=== PATIENT | male | born 1980 | race Caucasian/White ===

== ENCOUNTER 2017-03-08 18:21 | Emergency (ER) | payer OTHER ==
[2017-03-08 19:33] VITALS: BP 157/84
[2017-03-08] MEDS ORDERED: Cyclobenzaprine TAB* 10 MG PO ONE (19:41)
[2017-03-08] MEDS ORDERED: HYDROcodone/ACETAMIN 5-325 MG* 1 TAB PO ONE (19:41)
[2017-03-08] MEDS ORDERED: Naproxen TAB* 250 MG PO ONE (19:41)
--- NOTE | 2017-03-08 20:03 | UC ---
Back Pain HPI - HPI Summary HPI Summary: upper back pain x 1 week pain is between his shoulder blades ? injury by lifting heavy objects no cough, no sob - History of Current Complaint Chief Complaint: UCBackPain Stated Complaint: BACK PAIN Time Seen by Provider: 03/08/17 19:22 Hx Obtained From: Patient Onset/Duration: Gradual Onset, Lasting Weeks - 1, Still Present Timing: Constant Severity Initially: Moderate Severity Currently: Severe Back Pain: Is Discrete @ - upper back Character: Aching, Spasmodic Aggravating Factor(s): Movement, Lifting, Bending, Cough Alleviating Factor(s): Rest Associated Signs And Symptoms: Negative: Swelling, Redness, Bruising, Fever, Weakness, Numbness, Abdominal Pain - Allergies/Home Medications Allergies/Adverse Reactions: Allergies Allergy/AdvReac Type Severity Reaction Status Date / Time No Known Allergies Allergy Verified 03/08/17 19:25 Home Medications: Home Medications Acetaminophen TAB* [Tylenol TAB*] 1,000 mg PO TID 03/08/17 [History Confirmed ] Baclofen TAB* [Lioresal TAB*] 10 mg PO TID PRN 03/08/17 [History Confirmed 03/08] Lisinopril TAB* [Prinivil TAB 10 MG*] 10 mg DAILY 03/08/17 [History Confirmed ] PMH/Surg Hx/FS Hx/Imm Hx Previously Healthy: Yes - Surgical History Surgical History: Yes Surgery Procedure, Year, and Place: Appendix - Family History Known Family History: Negative: Diabetes - Social History Alcohol Use: Rare Substance Use Type: None Smoking Status (MU): Current Every Day Smoker Type: Cigarettes Amount Used/How Often: 1 PPD - Immunization History Most Recent Influenza Vaccination: NONE 2017 Review of Systems Constitutional: Negative Skin: Negative Eyes: Negative ENT: Negative Respiratory: Negative Is Patient Immunocompromised?: No All Other Systems Reviewed And Are Negative: Yes Physical Exam Triage Information Reviewed: Yes Appearance: No Pain Distress, Well-Nourished, Pain Distress Vital Signs: Initial Vital Signs Temp 98.1 F 03/08/17 19:27 Pulse 63 03/08/17 19:27 Resp 16 03/08/17 19:27 BP 157/84 03/08/17 19:27 Pulse Ox 98 03/08/17 19:27 Vital Signs Reviewed: Yes Eyes: Positive: Conjunctiva Clear ENT: Positive: Normal ENT inspection, Hearing grossly normal, Pharynx normal Neck exam: Normal Neck: Positive: Supple, Nontender, No Lymphadenopathy Respiratory: Positive: Chest non-tender, Lungs clear, Normal breath sounds Cardiovascular: Positive: RRR, No Murmur, Pulses Normal Abdominal Exam: Normal Abdomen Description: Positive: Nontender, Soft. Negative: CVA Tenderness (R), CVA Tenderness (L), Distended, Guarding Bowel Sounds: Positive: Present Musculoskeletal: Positive: Strength Intact, ROM Intact, No Edema, Other: - upper back : no swelling, no erythem , no tenderness, pain with any ROM Back Pain Course/Dx - Differential Dx/Diagnosis Provider Diagnoses: upper back strain Discharge - Discharge Plan Condition: Stable Disposition: HOME Prescriptions: Cyclobenzaprine TAB* [Flexeril 10 MG TAB*] 10 mg PO BID #20 tab HYDROcodone/ACETAMIN 5-325 MG* [[place] 5-325 TAB*] 1 tab PO Q6H PRN #15 tab MDD 4 tabs per day PRN Reason: Pain Naproxen [Naprosyn 500 mg] 500 mg PO BID #20 tab Patient Education Materials: Thoracic Back Strain (ED) Referrals: No Primary Care Phys,NOPCP [Primary Care Provider] - 7 Days
== END 2017-03-08 20:01 | disposition home or self-care (01) ==
LOC: UCCORT 18:21
DX: S29.012A Strain of muscle and tendon of back wall of thorax, initial encounter (principal); X58.XXXA Exposure to other specified factors, initial encounter; Y93.9 Activity, unspecified; Y92.9 Unspecified place or not applicable; F17.210 Nicotine dependence, cigarettes, uncomplicated
CPT/HCPCS: 99213; A9270-GY; G0463

== ENCOUNTER 2017-05-11 19:56 | Emergency (ER) | payer OTHER ==
[2017-05-11 20:29] VITALS: BP 147/83
--- NOTE | 2017-05-11 20:37 | UC ---
Ear Complaint HPI - HPI Summary HPI Summary: Pain in the right side of the neck with radiation up the right ear. Hearing decreased. No sorethroat congestion or cough. - History of Current Complaint Chief Complaint: UCEar Stated Complaint: RIGHT EAR PAIN Time Seen by Provider: 05/11/17 20:31 Hx Obtained From: Patient Onset/Duration: Gradual Onset, Lasting Weeks - 1, Worse Since - in the last couple of days. Severity Initially: Mild Severity Currently: Moderate Aggravating Factors: Other - pushing on the upper neck Associated Signs/Symptoms: Positive: Hearing Loss Related History: Seasonal Allergies - Allergies/Home Medications Allergies/Adverse Reactions: Allergies Allergy/AdvReac Type Severity Reaction Status Date / Time No Known Allergies Allergy Verified 05/11/17 20:29 Home Medications: Home Medications Flaxseed (Linseed) [Flax Seed Oil 1000 mg] 1 cap PO 05/11/17 [History] PMH/Surg Hx/FS Hx/Imm Hx Cardiovascular History: Hypertension - Surgical History Surgical History: Yes Surgery Procedure, Year, and Place: Appendix - Family History Known Family History: Negative: Diabetes - Social History Occupation: Employed Full-time Lives: With Family Alcohol Use: Rare Substance Use Type: None Smoking Status (MU): Heavy Every Day Tobacco Smoker Type: Cigarettes Amount Used/How Often: 1 PPD Have You Smoked in the Last Year: Yes Cessation Counseling: Patient Advised to Stop - Immunization History Most Recent Influenza Vaccination: NONE 2017 Review of Systems ENT: Ear Ache, Nasal Discharge Is Patient Immunocompromised?: No All Other Systems Reviewed And Are Negative: Yes Physical Exam Triage Information Reviewed: Yes Appearance: Well-Appearing, Well-Nourished, Pain Distress - mild Vital Signs: Initial Vital Signs Temp 97.9 F 05/11/17 20:25 Pulse 63 05/11/17 20:25 Resp 17 05/11/17 20:25 BP 147/83 05/11/17 20:25 Pulse Ox 98 05/11/17 20:25 Vital Signs Reviewed: Yes Eyes: Positive: Conjunctiva Clear ENT: Positive: Pharynx normal, Nasal congestion - with allergic changes., TMs normal - with scarring bilaterally Neck: Positive: Tenderness @ - right SCM muscle Respiratory Exam: Normal Cardiovascular Exam: Normal Musculoskeletal Exam: Normal Neurological Exam: Normal Psychological Exam: Normal Skin Exam: Normal Ear Complaint Course/Dx - Differential Dx/Diagnosis Differential Diagnosis/HQI/PQRI: Mastoiditis, Otitis Media, URI Provider Diagnoses: Allergic rhinitis. Right eustachian tube dysfunction. Cervicalgia Discharge - Discharge Plan Condition: Stable Disposition: HOME Prescriptions: Cyclobenzaprine TAB* [Flexeril 10 MG TAB*] 10 mg PO BEDTIME PRN #10 tab PRN Reason: Neck pain Patient Education Materials: Allergic Rhinitis (ED), Acute Neck Pain (ED), Cyclobenzaprine (By mouth) Referrals: Jovanny MCMULLEN,Herve Logan [Primary Care Provider] - Additional Instructions: NEILMED SINUS RINSE: CHECK OUT AT [facility] Saline nasal wash helps with mucous, allergies and congestion. It can be used up to twice a day or only as needed. Use lukewarm tap water. It does not have to be sterilized or distilled water. Do 1/3 on each side and snort out of both nostrils. Repeat the process with 1/6 of the bottle on each side with snorting in between to finish the solution in the bottle Smoking Cessation Tricks. 1. Cut down by 1 cigarette per day every 2-3 days. Write the number of smokes for that day on the calendar. 2. Identify triggers to smoking: after meals, on the phone, in the car, with coffee, on breaks at work, etc. 3. Formulate a plan with a behavior to replace the smoking. Fireballs in the car , doodle pad on the phone, flavored creamer for the coffee, go for a walk after a meal or on break at work. 4. For stress smokes do deep breathing relaxation. Breath deep in through the nose hold the breath in for a few seconds then breath out slowly through the mouth.
[2017-05-11] MEDS ORDERED: Cyclobenzaprine TAB* 10 MG PO ONE (20:49)
== END 2017-05-11 21:03 | disposition home or self-care (01) ==
LOC: UCCORT 19:56
DX: M54.2 Cervicalgia (principal); J30.9 Allergic rhinitis, unspecified; H69.91 Unspecified Eustachian tube disorder, right ear; I10 Essential (primary) hypertension; F17.210 Nicotine dependence, cigarettes, uncomplicated
CPT/HCPCS: 99212; A9270-GY; G0463